=== PATIENT | male | born 1955 | race Caucasian/White ===

== ENCOUNTER 2016-10-12 06:27 | Day surgery (SDC) | payer MEDICARE ==
--- NOTE | ~2016-10-12 | EGD ---
EGD REPORT [facility] [address] [place]. [id number] NAME: ZULMA JONES : [birth year] STATUS : REG [facility] PAT#: [id number] AGE: 61 ADM/REG DATE : 10/12/16 MR#: [id number] REPORT SERV DATE: 10/12/16 DICTATED BY: PERFECTO PRASAD DATE: 10/12/16 REPORT STATUS : Draft TRANSCRIBED BY: [employer] DATE: 10/12/16 [facility] Center Patient Name: Zulma Jones Date of : 1955 Attending MD: PERFECTO PRASAD, Procedure Date No Time: 10/12/2016 Procedure: Upper GI endoscopy Indications: Nausea with vomiting Referring MD: CELINA MARTINES Medicines: Monitored Anesthesia Care Complications: No immediate complications. Estimated blood loss: None. Procedure: Pre-Anesthesia Assessment: - ASA Grade Assessment: III - A patient with severe systemic disease. After obtaining informed consent, the endoscope was passed under direct vision. Throughout the procedure, the patient's blood pressure, pulse, and oxygen saturations were monitored continuously. The GIF [id number] was introduced through the mouth, and advanced to the second part of duodenum. The upper GI endoscopy was accomplished without difficulty. The patient tolerated the procedure well. Findings: The esophagus was normal. A single small papule (nodule) with no bleeding and no stigmata of recent bleeding was found in the gastric antrum. Biopsies were taken with a cold forceps for histology. Verification of patient identification for the specimen was done. Estimated blood loss was minimal. Patchy moderate inflammation characterized by erosions and erythema was found in the entire examined stomach. Biopsies were taken with a cold forceps for histology. Verification of patient identification for the specimen was done. Estimated blood loss was minimal. The examined duodenum was normal. Multiple biopsies were obtained in the 2nd part of the duodenum with cold forceps for histology. Impression: - Normal esophagus. - A single small papule (nodule) with no bleeding and no stigmata of recent bleeding was found in the stomach. Biopsied. - Gastritis. Biopsied. - Normal examined duodenum. - Multiple biopsies were obtained in the 2nd part of the duodenum. EGD REPORT [address] [address] NAME: ZULMA JONES : [birth year] STATUS : REG [facility] PAT#: [id number] AGE: 61 ADM/REG DATE : 10/12/16 MR#: [id number] REPORT SERV DATE: 10/12/16 DICTATED BY: PERFECTO PRASAD DATE: 10/12/16 REPORT STATUS : Draft TRANSCRIBED BY: [employer] DATE: 10/12/16 Recommendation: - Patient has a contact number available for emergencies. The signs and symptoms of potential delayed complications were discussed with the patient. Return to normal activities tomorrow. Written discharge instructions were provided to the patient. - Return to previous diet. - Continue present medications. - Await pathology results. - Return to GI clinic in 4 weeks. Procedure Code(s): --- Professional --- 93658, Esophagogastroduodenoscopy, flexible, transoral; with biopsy, single or multiple Diagnosis Code(s): --- Professional --- K31.9, Disease of stomach and duodenum, unspecified K29.70, Gastritis, unspecified, without bleeding R11.2, Nausea with vomiting, unspecified CPT copyright 2013 [employer]. All rights reserved. The codes documented in this report are preliminary and upon interlibrary loan services librarian review may be revised to meet current compliance requirements. PERFECTO PRASAD, 10/12/2016 7:54 AM Number of Addenda: 0 Note Initiated On: 10/12/2016 7:38 AM Scope Withdrawal Time 0 hours 0 minutes 0 seconds [address] [place] [id number]
[~2016-10-12 06:27] MED LIST: ADVAIR250 INH; ALBUTEROL INHALER; ALTA2.5 PO; AMIT50 PO; ASACOL PO; AT25 PO; ATEN50 PO; ATIVAN2 MG PO; ATV.5 PO; ATV1 PO; BREO ELLIPTA 21 EACH INH; BUSPAR30 MG PO; CAT1 PO; CELEXA20 PO; CELEXA40 MG PO; CORDARONE PO; COREG12 PO; COUMADIN3 MG PO; COUMADIN7.5 MG PO; DEXILANT; DIABETA5 PO; FERROUS SULF325 M1 PO; FLEX PO; FOLIC PO; IMU PO; INCRUSE ELLI62.5 MCG INH; JANTOVEN1 MG PO; JANTOVEN4 MG PO; JANTOVEN6 MG PO; KAPIDEX60 MG PO; KLOR-CON 1010 MEQ PO; L40 PO; LAN125 PO; LIALDA1.2 GM PO; LORTAB 10/325 PO; P10 PO; PRILOSEC40 MG PO; PROVENTIL; SAS500 PO; SPIRIVA INH; SPIRO25 PO; SYMBICORT 160/41 INH INH; ULTRAM50 PO; VENTOLIN HFA INH; VITAMIN D1000 UNI1 PO; VITAMIN D31000 UNIT PO; VITC500 PO; ZYRTEC ALLGY10 MG PO; ZYRTEC CHIL1 PO; [UNRECOGNIZED DRUG - OTHER] PO
[2016-10-12 06:50] LABS: INTERNATIONAL NORMAL RATI 1.2 UNITS (-); PROTIME (NOT ORD) 14.8 SEC (12.0-14.5)
== END 2016-10-12 23:59 | disposition home or self-care (01) ==
LOC: DMU 06:27
PROVIDERS: Anesthesiology; Internal Medicine Gastroenterology
PROC: 0DB68ZX Excision of Stomach, Via Natural or Artificial Opening Endoscopic, Diagnostic (ICD-10-PCS; 2016-10-12)
PROC: 0DB98ZX Excision of Duodenum, Via Natural or Artificial Opening Endoscopic, Diagnostic (ICD-10-PCS; principal; 2016-10-12 07:30)
DX: K29.50 Unspecified chronic gastritis without bleeding (principal); K31.9 Disease of stomach and duodenum, unspecified; R11.2 Nausea with vomiting, unspecified; I48.91 Unspecified atrial fibrillation; I10 Essential (primary) hypertension; J44.9 Chronic obstructive pulmonary disease, unspecified; J45.909 Unspecified asthma, uncomplicated; G47.33 Obstructive sleep apnea (adult) (pediatric); F41.9 Anxiety disorder, unspecified; F32.9 Major depressive disorder, single episode, unspecified; E11.9 Type 2 diabetes mellitus without complications; F17.210 Nicotine dependence, cigarettes, uncomplicated; E66.01 Morbid (severe) obesity due to excess calories; Z88.8 Allergy status to other drugs, medicaments and biological substances; Z79.899 Other long term (current) drug therapy; Z79.01 Long term (current) use of anticoagulants; Z98.890 Other specified postprocedural states
CPT/HCPCS: 82962; 85610; 88305; 88342; J0330; J2250; J3010